=== PATIENT | female | born 1940 | race Caucasian/White ===

== ENCOUNTER → 2016-08-16 | Outpatient (CLI) | payer MEDICARE, BC ==
[~2016-08-16] MED LIST: ALEVE 220MG220 MG PO; AMITIZA 8MCG8 MCG; ASPIRIN E.C. 8181 MG PO; B COMPLEX1 TA2 PO; CITRACAL + D CA1 TAB PO; COMPLETE SENIOR1 TA1 PO; HALDOL 1MG T1 MG/TAB PO; HALDOL 2MG T2 MG/TAB PO; LYSINE1000 MG PO; MAGNESIUM200 MG PO; MOTRIN 800800 MG/TAB PO; MULTIVITAMIN FO1 CAP PO; NAPROSYN500 MG PO; NORCO 325 MG-51 TAB PO; OMEGA 31000 MG PO; PERCOCET 325 MG1 TA3 PO; QUALITY CHOICE600 M1 PO; RISPERDAL2 MG PO; STOOL SOFTENER100 M2 PO; TENEX PO; TYLENOL 325MG325 MG PO; VITAMINC1000TA PO; XALATAN EYE DROPS OU
== END ==
LOC: MC.RAD 08:24
DX: Z12.31 Encounter for screening mammogram for malignant neoplasm of breast (principal)

== ENCOUNTER → 2017-08-18 | Outpatient (CLI) | payer MEDICARE, BC | LOC: MC.RAD 09:56 | DX: Z12.31 Encounter for screening mammogram for malignant neoplasm of breast (principal) ==

== ENCOUNTER → 2018-09-12 | Outpatient (CLI) | payer MEDICARE, BC | LOC: MC.RAD 07:39 | DX: Z12.31 Encounter for screening mammogram for malignant neoplasm of breast (principal); N63.20 Unspecified lump in the left breast, unspecified quadrant ==

== ENCOUNTER → 2018-09-15 | Outpatient (CLI) | payer MEDICARE, BC | LOC: MC.RAD 10:45 | DX: N63.20 Unspecified lump in the left breast, unspecified quadrant (principal) ==

== ENCOUNTER 2018-10-17 08:38 | Day surgery (SDC) | payer MEDICARE, BC ==
[~2018-10-17] VITALS: Ht 160 cm; Wt 50.7 kg
[2018-10-17 10:39] VITALS: BP 143/71; PULSE 78; TEMP 97.4
[2018-10-17] MEDS ORDERED: VITAMIN D31000 I1 PO (10:53)
[2018-10-17 13:27] VITALS: BP 122/52; PULSE 88; TEMP 97.2
--- NOTE | 2018-10-17 13:35 | NUR ---
PATIENT RETURNS FROM OR TO BAY 3 VIA CART. ASLEEP, AROUSES TO NAME. VS STARTED. AT BEDSIDE. DECLINES FOOD OR DRINK AT THIS TIME. CALL LIGHT IS WITHIN REACH. WILL CONTINUE TO MONITOR.
[2018-10-17 13:45] VITALS: BP 133/65; PULSE 66
[2018-10-17] MEDS ORDERED: NORCO 325 MG-51 TAB PO (13:49)
[2018-10-17] MEDS ORDERED: MOTRIN 600600 MG/TAB PO (13:49)
[2018-10-17 14:00] VITALS: BP 134/68; PULSE 70; TEMP 97.9
--- NOTE | 2018-10-17 14:17 | NUR ---
DIET PEPSI GIVEN REQUESTED. CALL LIGHT WITHIN REACH. AT BEDSIDE.
[2018-10-17 14:30] VITALS: BP 136/68; PULSE 70; TEMP 98
--- NOTE | 2018-10-17 14:48 | NUR ---
PATIENT AND GIVEN DISCHARGE INSTRUCTIONS, VERBALIZED UNDERSTANDING. PRESCRIPTIONS GIVEN, VERBALIZED UNDERSTANDING. PATIENT ATE CRACKERS WITHOUT NAUSEA. AMBULATED TO BATHROOM. IV DC'D. DISCHAGRED TO HOME VIA WHEELCHAIR TO PERSONAL VEHICHLE.
== END 2018-10-17 14:40 | disposition home or self-care (01) ==
LOC: SDCO 08:38
DX: D05.12 Intraductal carcinoma in situ of left breast (principal); Z17.0 Estrogen receptor positive status [ER+]; Z90.710 Acquired absence of both cervix and uterus; Z79.899 Other long term (current) drug therapy; Z79.82 Long term (current) use of aspirin; F95.2 Tourette's disorder; R73.03 Prediabetes; Z86.73 Personal history of transient ischemic attack (TIA), and cerebral infarction without residual deficits; M81.0 Age-related osteoporosis without current pathological fracture; Z80.0 Family history of malignant neoplasm of digestive organs; Z82.49 Family history of ischemic heart disease and other diseases of the circulatory system; Z87.891 Personal history of nicotine dependence
CPT/HCPCS: J0690; J2405; J2704; J3010; J7120

== ENCOUNTER → 2019-12-03 | Outpatient (CLI) | payer MEDICARE, BC ==
[~2019-12-03] MED LIST changes: +MOTRIN 600600 MG/TAB PO; +VITAMIN D31000 I1 PO
== END ==
LOC: MC.RAD 08:50
DX: Z12.31 Encounter for screening mammogram for malignant neoplasm of breast (principal)

== ENCOUNTER → 2020-12-03 | Outpatient (CLI) | payer MEDICARE, BC | LOC: MC.RAD 09:21 | DX: Z12.31 Encounter for screening mammogram for malignant neoplasm of breast (principal) ==

== ENCOUNTER → 2021-12-04 | Outpatient (CLI) | payer MEDICARE, BC | LOC: MC.RAD 08:13 | DX: Z12.31 Encounter for screening mammogram for malignant neoplasm of breast (principal) ==

== ENCOUNTER → 2021-12-11 | Outpatient (CLI) | payer MEDICARE, BC | LOC: MC.RAD 08:56 | DX: N63.21 Unspecified lump in the left breast, upper outer quadrant (principal) ==

== ENCOUNTER → 2021-12-16 | Outpatient (CLI) | payer MEDICARE, BC | LOC: MC.RAD 06:50 | DX: N63.20 Unspecified lump in the left breast, unspecified quadrant (principal) | CPT/HCPCS: A4648 ==

== ENCOUNTER 2022-01-15 06:42 | Day surgery (SDC) | payer MEDICARE, BC ==
[~2022-01-15] VITALS: Ht 157.5 cm; Wt 50.0 kg
[2022-01-15] VITALS (11 sets, daily range): BP systolic 111–159; BP diastolic 55–91; PULSE 65–97; TEMP 97.7–98.7
[~2022-01-15 06:42] MED LIST changes: +CENTRUM SILVER1 TAB PO; -COMPLETE SENIOR1 TA1 PO; +MAG-OX 400400 MG/TAB PO; -MAGNESIUM200 MG PO; +MASON NATURAL2000 IU PO; -VITAMIN D31000 I1 PO
[2022-01-15 08:36] LABS: EOS # 0.1 K/mm3 (0.0-0.7); EOS % 2.3 % (0.0-4.0); GRAN # 2.1 K/mm3 (1.4-6.5); GRAN % 53.1 % (42.2-75.2); HEMATOCRIT 34.9 % (37.0-47.0); HEMOGLOBIN 11.9 g/dl (12.5-16.0); LYMPH # 1.3 K/mm3 (1.2-3.4); LYMPH % 31.3 % (20.0-51.0); MEAN CELL VOLUME 85 fl (80.0-100.0); MEAN CORPUSCULAR HEMOGLOBIN 29 pg (27-31); MEAN CORPUSCULAR HGB CONC 34 g/dl (33.0-37.0); MEAN PLATELET VOLUME 8.7 fl (7.4-10.4); MONO # 0.5 K/mm3 (0.1-0.6); PLATELET COUNT 263 K/mm3 (130-400); REDCELL DISTRIBUTION WIDTH-CV 13.9 % (11.5-14.5)
[2022-01-15 08:54] LABS: ALBUMIN 3.8 gm/dL (3.4-4.8); BILIRUBIN,TOTAL 0.7 mg/dL (0.2-1.2); CREATININE, serum 0.69 mg/dL (0.57-1.11); TOTAL PROTEIN 6.2 gm/dL (6.2-8.1)
[2022-01-15] MEDS ORDERED: XALATAN EYE DROPS OU (09:48)
[2022-01-15] MEDS ORDERED: TETRACYCLINE 2250 MG PO (09:48)
[2022-01-15] MEDS ORDERED: MINOCYCLIN100 MG/CAP PO (09:49)
[2022-01-15] MEDS ORDERED: NORCO 325 MG-51 TAB PO (14:49)
--- NOTE | 2022-01-15 20:09 | NUR ---
PT AWAKE, HAS IVF INFUSING TO RT HAND WITHOUT PROBLEM. IS ALERT AND ORIENTED X4. HAS NITHIN DRAINS X2 TO LEFT CHEST, LARGE DRSG WITH LARGE MAI WRAP TO LEFT CHEST POST LT MASTECTOMY. ASSISTED TO BATHROOM, GAIT STEADY, VOIDS AND BACK TO BED. TAKES HS MED INCLUDING NORCO 1 PO FOR LEFT CHEST PAIN. WILL MONITOR FOR CHANGES.
--- NOTE | 2022-01-15 23:00 | NUR ---
EMPTIED 6CC SANGUINOUS FLUID FROM NITHIN "A" AND NONE IN NITHIN "B". PT ASSISTED TO BATHROOM AND BACK TO BED. IVF CONTINUE TO RT HAND.
[2022-01-16 03:52] VITALS: BP 139/67; PULSE 92; TEMP 98.7
--- NOTE | 2022-01-16 04:48 | NUR ---
ASSISTED TO BATHROOM, VOIDS AND BACK TO BED. EMPTIED 6CC SANGUINOUS DRAINAGE FROM NITHIN "A", NITHIN "B" NONE. PREVIOUSLY MEDICATED WITH NORCO FOR LEFT CHEST INCISIONAL PAIN.
--- NOTE | 2022-01-16 06:15 | NUR ---
PT AWAKE, COFFEE PROVIDED.
[2022-01-16 07:35] VITALS: BP 158/69; PULSE 89; TEMP 98.6
--- NOTE | 2022-01-16 10:27 | NUR ---
Initial visit; Patient and her thanked [employer] for stopping in and offering encouragement and God's blessings. [employer] will keep Lizabeth in her prayers.
--- NOTE | 2022-01-16 11:03 | NUR ---
DRESSING TO LEFT CHEST WALL REMOVED ORDERED, EULOGIO. DRAING SPONGES CHANGED. PATIENT AND SHOWN HOW TO MANAGE NITHIN DRAIN. PATIENT SEEMS UNWILLING TO LEARN, HOWEVER, HER STATED HE IS COMFORTABLE WITH IT. ABLE TO TEACH BACK.
--- NOTE | 2022-01-16 11:53 | NUR ---
ALL DISCHARGE INSTRUCTIONS AND EDUCATIONS GIVEN. PATIENTS SHOWED HOW TO EMPTY NITHIN DRTAIN INDEPENDENTLY. ALL QUESTIONS ANSWERED. IV DISCONTINUED. PATIENT LEAVING IN STABLE CONDITION IN THE CARE OF HER .
== END 2022-01-16 11:50 | disposition home or self-care (01) ==
LOC: SDCO 06:42 → SURG 16:20 → SDCO 01-16 11:50
PROVIDERS: Surgery
DX: C50.912 Malignant neoplasm of unspecified site of left female breast (principal)
CPT/HCPCS: OP; A9520; J0360; J0690; J1100; J1170; J2250; J2405; J2704; J2795; J3010; J7120

== ENCOUNTER 2023-07-19 11:39 | Emergency (ER) | payer MEDICARE, BC ==
[~2023-07-19] VITALS: Ht 154.9 cm; Wt 52.3 kg
[~2023-07-19 11:39] MED LIST changes: +MINOCYCLIN100 MG/CAP PO; +TETRACYCLINE 2250 MG PO
[2023-07-19 11:52] VITALS: TEMP 97.9
[2023-07-19] MEDS ORDERED: NS 1,000 ML IV ONE (12:15)
[2023-07-19 12:26] LABS: BASO % 0.7 % (0.0-2.0); EOS % 0.5 % (0.0-4.0); GRAN # 3.9 K/mm3 (1.4-6.5); GRAN % 69.9 % (42.2-75.2); HEMATOCRIT 36.3 % (37.0-47.0); HEMOGLOBIN 12.3 g/dl (12.5-16.0); LYMPH # 1.2 K/mm3 (1.2-3.4); LYMPH % 21.6 % (20.0-51.0); MEAN CELL VOLUME 89 fl (80.0-100.0); MEAN CORPUSCULAR HEMOGLOBIN 30 pg (27-31); MEAN CORPUSCULAR HGB CONC 34 g/dl (33.0-37.0); MEAN PLATELET VOLUME 9.2 fl (7.4-10.4); MONO # 0.4 K/mm3 (0.1-0.6); MONO % 7.1 % (1.7-9.3); PLATELET COUNT 240 K/mm3 (130-400); RED BLOOD COUNT 4.09 M/mm3 (4.10-5.30); REDCELL DISTRIBUTION WIDTH-CV 14.1 % (11.5-14.5)
[2023-07-19 12:46] LABS: COLLECTION METHOD CLEAN CATCH
[2023-07-19 12:51] LABS: BILIRUBIN,TOTAL 0.8 mg/dL (0.2-1.2); CALCIUM 8.9 mg/dL (8.4-10.2); CREATININE, serum 0.75 mg/dL (0.57-1.11); POTASSIUM 4.1 mmol/L (3.5-4.5); TOTAL PROTEIN 6.6 gm/dL (6.2-8.1)
[2023-07-19 13:03] LABS: URINE APPEARANCE Clear (CLEAR/HAZY); URINE BLOOD Negative (NEGATIVE); URINE COLOR Yellow (YELLOW); URINE GLUCOSE Negative (NEGATIVE); URINE KETONE 1+ (NEGATIVE); URINE NITRATE Negative (NEGATIVE); URINE PROTEIN(semi-quant) Negative (NEGATIVE); URINE UROBILINOGEN 0.2 E.U/dL (0.2-1.0)
[2023-07-19] MEDS ORDERED: Iohexol 300 - 100 ML VIAL IV ONE (13:16)
[2023-07-19] MEDS ORDERED: NS 100 ML IV SCH (13:17)
[2023-07-19] MEDS ORDERED: Ondansetron 4 MG/2 ML VIAL IV ONE (13:45)
[2023-07-19] MEDS ORDERED: Meclizine 25 MG TAB PO ONE (13:45)
[2023-07-19 15:00] VITALS: BP 136/98; PULSE 76
[2023-07-19] MEDS ORDERED: ANTIVERT 25MG25 MG PO (15:01)
[2023-07-19] MEDS ORDERED: ZOFRAN ODT4 MG PO (15:01)
== END 2023-07-19 15:26 | disposition home or self-care (01) ==
LOC: COL.ER 11:39
PROVIDERS: Physician Assistant
DX: R42 Dizziness and giddiness (principal); R11.0 Nausea; R51.9 Headache, unspecified
CPT/HCPCS: J2405; J7030; Q9967

== ENCOUNTER → 2023-12-09 | Outpatient (CLI) | payer MEDICARE, BC ==
[~2023-12-09] MED LIST changes: +ANTIVERT 25MG25 MG PO; +ZOFRAN ODT4 MG PO
== END ==
LOC: MC.RAD 08:30
DX: Z12.31 Encounter for screening mammogram for malignant neoplasm of breast (principal)